=== PATIENT | male | born 2000 | race Caucasian/White ===

== ENCOUNTER 2022-09-03 00:08 | Emergency (ER) | payer OTHER ==
[~2022-09-03] VITALS: Ht 185.4 cm; Wt 81.8 kg
[2022-09-03 00:13] VITALS: TEMP 98.2
[2022-09-03 00:41] LABS: BASO # 0.1 K/mm3 (0.0-0.2); EOS # 0.2 K/mm3 (0.0-0.7); EOS % 2.9 % (0.0-4.0); GRAN # 3.9 K/mm3 (1.4-6.5); GRAN % 57.3 % (42.2-75.2); HEMATOCRIT 41.3 % (42.0-52.0); HEMOGLOBIN 14.5 g/dl (13.5-18.0); LYMPH # 2.1 K/mm3 (1.2-3.4); LYMPH % 29.9 % (20.0-51.0); MEAN CELL VOLUME 87 fl (80.0-100.0); MEAN CORPUSCULAR HEMOGLOBIN 31 pg (27-31); MEAN CORPUSCULAR HGB CONC 35 g/dl (33.0-37.0); MEAN PLATELET VOLUME 10.2 fl (7.4-10.4); MONO # 0.6 K/mm3 (0.1-0.6); MONO % 8.6 % (1.7-9.3); PLATELET COUNT 252 K/mm3 (130-400); RED BLOOD COUNT 4.73 M/mm3 (4.20-5.60); REDCELL DISTRIBUTION WIDTH-CV 11.9 % (11.5-14.5)
[2022-09-03 01:00] LABS: BILIRUBIN,TOTAL 0.5 mg/dL (0.2-1.2); C-REACTIVE PROTEIN 0.09 mg/dL (0.00-0.50); CALCIUM 9.1 mg/dL (8.4-10.2); CREATININE, serum 0.96 mg/dL (0.72-1.25); POTASSIUM 3.7 mmol/L (3.5-4.5); TOTAL PROTEIN 7.2 gm/dL (6.2-8.1)
[2022-09-03] MEDS ORDERED: ZOFRAN ODT4 MG PO (01:52)
[2022-09-03 01:55] VITALS: BP 110/69; PULSE 65
== END 2022-09-03 01:55 | disposition home or self-care (01) ==
LOC: COL.ER 00:08
PROVIDERS: Emergency Medicine
DX: K52.9 Noninfective gastroenteritis and colitis, unspecified (principal); F17.290 Nicotine dependence, other tobacco product, uncomplicated
CPT/HCPCS: J2405; J2550; J7030

== ENCOUNTER 2023-08-14 15:46 | Emergency (ER) | payer OTHER ==
[~2023-08-14] VITALS: Ht 185.4 cm; Wt 84.1 kg
[~2023-08-14 15:46] MED LIST: ZOFRAN ODT4 MG PO
[2023-08-14 15:54] VITALS: TEMP 99.2
[2023-08-14] MEDS ORDERED: ELIQUIS 5MG PO (18:15)
[2023-08-14 18:40] VITALS: BP 133/81; PULSE 88
== END 2023-08-14 18:46 | disposition home or self-care (01) ==
LOC: COL.ER 15:46
DX: M79.661 Pain in right lower leg (principal); R79.1 Abnormal coagulation profile; Z86.711 Personal history of pulmonary embolism; Z79.01 Long term (current) use of anticoagulants

== ENCOUNTER 2023-12-25 04:16 | Emergency (ER) | payer OTHER ==
[~2023-12-25] VITALS: Ht 188 cm; Wt 84.1 kg
[~2023-12-25 04:16] MED LIST changes: +ELIQUIS 5MG PO
[2023-12-25 04:19] VITALS: TEMP 98
[2023-12-25] MEDS ORDERED: fentaNYL 50 MCG/ML 2 ML VIAL IV ONE (04:45)
[2023-12-25 05:33] VITALS: BP 120/84; PULSE 77
== END 2023-12-25 05:33 | disposition home or self-care (01) ==
LOC: COL.ER 04:16
DX: S09.90XA Unspecified injury of head, initial encounter (principal); S00.83XA Contusion of other part of head, initial encounter; F10.129 Alcohol abuse with intoxication, unspecified; Z86.718 Personal history of other venous thrombosis and embolism; Z79.01 Long term (current) use of anticoagulants; W22.8XXA Striking against or struck by other objects, initial encounter; W18.30XA Fall on same level, unspecified, initial encounter; Y92.59 Other trade areas as the place of occurrence of the external cause
CPT/HCPCS: J3010